=== PATIENT | male | born 1975 | race Caucasian/White ===

== ENCOUNTER 2019-12-25 00:28 | Emergency (ER) | payer MEDICAID ==
[~2019-12-25] VITALS: Ht 188 cm; Wt 81.6 kg
[2019-12-25 00:30] VITALS: BP_SYST 120
--- NOTE | 2019-12-25 00:30 | NUR ---
PATIENT PORFIRIO LUNA FOR MEDICAL CLEARANCE FOR HISTORY OF DIABETES AND LEFT WRIST PAIN. PATIENT STATES HE HAS HAD PAIN SINCE YESTERDAY WHEN HIS BACKBACK WITH HIS WRIST SPLINT WAS STOLEN. PATIENT STATES 7/10 NONRADIATING THROBBING PAIN. NO LACERATION, BRUISING, OR MALFORMATION NOTED TO WRIST. PATIENT STATES HE HAS NOT CHECKED BLOOD GLUCOSE FOR 1 MONTH DUE TO NO SUPPLIES. PATIENT A&OX4. [facility] 15. DR. PATTERSON AT BEDSIDE ASSESSING PATIENT. AWAITING FURTHER ORDERS AND WILL CONTINUE TO MONITOR.
--- NOTE | 2019-12-25 01:08 | NUR ---
PATIENT TO AND FROM XRAY WITH NO INCIDENT AND WITH OFFICER. WILL CONTINUE TO MONITOR.
--- NOTE | 2019-12-25 01:10 | NUR ---
ER Dr. Gaytan at bedside examining patient.
--- NOTE | 2019-12-25 01:40 | NUR ---
Patient was placed in bilateral wrist splints, as ordered by Dr. Gaytan. CMS intact bilaterally. Pt tolerated well. Cap refill < 3 seconds.
[2019-12-25 01:51] VITALS: BP_SYST 120
--- NOTE | 2019-12-25 01:51 | NUR ---
Patient given written and verbal discharge instructions and verbalizes understanding. ER MD PATTERSON discussed with patient the results and treatment provided. Patient in stable condition. ID arm band removed. IV catheter removed intact and dressing applied, no active bleeding. Rx of IBUPROFEN given. Patient educated on pain management and to follow up with PMD. Pain Scale 4/10. Opportunity for questions provided and answered. Medication side effect fact sheet provided. Patient escorted out by [facility] in custody
== END 2019-12-25 01:51 ==
LOC: SED 00:28 → EDBD 00:28 → SED 01:51
DX: M25.532 Pain in left wrist (principal); M25.531 Pain in right wrist; E11.9 Type 2 diabetes mellitus without complications
CPT/HCPCS: 82962; 99283